=== PATIENT | female | born 1945 | race Caucasian/White ===

== ENCOUNTER → 2023-11-20 19:08 | Outpatient (REF) | payer OTHER, SELFPAY | LOC: MRI 19:08 | PROVIDERS: ATTENDING PHYSICIAN Internal Medicine Gastroenterology | DX: R93.5 Abnormal findings on diagnostic imaging of other abdominal regions, including retroperitoneum (principal) | CPT/HCPCS: 74183; A9575 ==

== ENCOUNTER → 2024-01-22 06:26 | Day surgery (SDC) | payer OTHER, SELFPAY | LOC: GI 06:26 | PROVIDERS: ATTENDING PHYSICIAN Internal Medicine Gastroenterology | DX: K63.5 Polyp of colon (principal); K57.30 Diverticulosis of large intestine without perforation or abscess without bleeding; K62.1 Rectal polyp; Q43.8 Other specified congenital malformations of intestine; Z86.010 Personal history of colon polyps | CPT/HCPCS: 45385; 45380; 88305 ==

== ENCOUNTER 2024-01-27 06:13 | Day surgery (SDC) | payer OTHER, SELFPAY ==
[2024-01-27 09:52] VITALS: BMI 17.9
[2024-01-27 09:54] VITALS: BP 135/77
[2024-01-27 10:05] VITALS: BMI 17.9
[2024-01-27 10:06] VITALS: BMI 17.9
[2024-01-27 13:03] VITALS: BP 126/67
[2024-01-27 13:15] VITALS: BP 108/89
[2024-01-27 13:30] VITALS: BP 144/73
== END 2024-01-27 13:48 | disposition home or self-care (01) ==
LOC: GI 06:13
PROVIDERS: ATTENDING PHYSICIAN Internal Medicine Gastroenterology
DX: R10.13 Epigastric pain (principal); K31.7 Polyp of stomach and duodenum; K86.2 Cyst of pancreas; K83.8 Other specified diseases of biliary tract; K86.89 Other specified diseases of pancreas; R93.3 Abnormal findings on diagnostic imaging of other parts of digestive tract
CPT/HCPCS: 44364; 43237

== ENCOUNTER → 2024-03-02 15:02 | Outpatient (REF) | payer OTHER, SELFPAY | LOC: HWWDC 15:02 | PROVIDERS: ATTENDING PHYSICIAN Obstetrics & Gynecology; FAMILY PHYSICIAN Family Medicine | DX: Z12.31 Encounter for screening mammogram for malignant neoplasm of breast (principal) | CPT/HCPCS: 77063; 77067 ==

== ENCOUNTER 2024-08-24 06:28 | Day surgery (SDC) | payer OTHER, SELFPAY ==
[2024-08-24 11:32] VITALS: BP 138/71
[2024-08-24 11:40] VITALS: BMI 18.7
[2024-08-24 14:45] VITALS: BP 117/70
[2024-08-24 15:00] VITALS: BP 136/59
== END 2024-08-24 15:24 | disposition home or self-care (01) ==
LOC: GI 06:28
PROVIDERS: ATTENDING PHYSICIAN Internal Medicine Gastroenterology
DX: Z13.810 Encounter for screening for upper gastrointestinal disorder (principal); Z87.19 Personal history of other diseases of the digestive system
CPT/HCPCS: 43235

== ENCOUNTER → 2024-10-04 13:08 | Outpatient (REF) | payer OTHER, SELFPAY | LOC: MRI 3T 13:08 | PROVIDERS: ATTENDING PHYSICIAN Internal Medicine Gastroenterology; FAMILY PHYSICIAN Family Medicine | DX: R93.5 Abnormal findings on diagnostic imaging of other abdominal regions, including retroperitoneum (principal) | CPT/HCPCS: 74183; A9575 ==

== ENCOUNTER → 2025-04-26 08:33 | Outpatient (REF) | payer OTHER, SELFPAY | LOC: HWWDC 08:33 | PROVIDERS: ATTENDING PHYSICIAN Obstetrics & Gynecology; FAMILY PHYSICIAN Family Medicine | DX: M81.0 Age-related osteoporosis without current pathological fracture (principal); Z12.31 Encounter for screening mammogram for malignant neoplasm of breast | CPT/HCPCS: 77063; 77067; 77080 ==

== ENCOUNTER → 2025-08-23 12:05 | Outpatient (REF) | payer OTHER, SELFPAY | LOC: PAVMRI 12:05 | PROVIDERS: ATTENDING PHYSICIAN Internal Medicine Gastroenterology; FAMILY PHYSICIAN Family Medicine | DX: R93.5 Abnormal findings on diagnostic imaging of other abdominal regions, including retroperitoneum (principal) | CPT/HCPCS: 74183; A9575 ==

== ENCOUNTER 2025-08-26 06:18 | Day surgery (SDC) | payer OTHER, SELFPAY | END 2025-08-26 13:11 | disposition home or self-care (01) | LOC: GI 06:18 | PROVIDERS: ATTENDING PHYSICIAN Internal Medicine Gastroenterology | DX: Z87.19 Personal history of other diseases of the digestive system (principal) | CPT/HCPCS: 43235 ==